=== PATIENT | male | born 1955 | race Caucasian/White ===

== ENCOUNTER 2023-03-30 12:02 | Outpatient (CLI) | payer MEDICARE, SELFPAY ==
--- NOTE | 2023-03-30 12:10 | CT_ITS ---
WS: [id number] LDCT LUNG CANCER SCREENING TECHNIQUE: Noncontrast CT of the chest with coronal and sagittal reformatted images. CLINICAL INFORMATION: TOBACCO DEPENDENCE, CIGARETTES COMPARISON: None. DLP: 82.49 mGy.cm DIvol: Mean CTDIvol: 1.60 (mGy) All CT scans at [facility] use at least one of these dose optimization techniques: automat ed exposure control; mA and/or kV adjustment per patient size (includes targeted exams where dose is matched to clinical indication); or iterative reconstruction. FINDINGS: Mild chronic emphysematous changes. Calcified granulomas. Noncalcified nodule LEFT lower lobe posteri or medially measuring 4 mm. Tiny pleural-based nodule LEFT lower lobe posterior medially. Small nonca lcified nodule LEFT upper lobe anteriorly measuring 3.5 mm. Pleural-based nodule RIGHT lower lobe pos terior medially measuring 6 mm. Partially calcified nodules LEFT upper lobe and LEFT lower lobe along the fissure. Mild aortic calcification. No mediastinal or hilar lymphadenopathy. No axillary lymphadenopathy. Adrenal glands are normal. Diffuse fatty atrophy of the pancreas. Tiny esophageal hiatal hernia. Mild thoracic curve. Mild thoracic kyphosis. CT/CT lung screening [id number] IMPRESSION: LUNG-RADS: 2-Benign Appearance or Behavior FOLLOW UP: 12 Month: Continue annual screening with LDCT
== END 2023-03-30 12:03 | disposition home or self-care (01) ==
PROVIDERS: PCP Nurse Practitioner Family; Visit Provider Nurse Practitioner Family
DX: Z12.2 Encounter for screening for malignant neoplasm of respiratory organs (principal); F17.210 Nicotine dependence, cigarettes, uncomplicated
CPT/HCPCS: 71271

== ENCOUNTER 2024-05-23 09:45 | Outpatient (CLI) | payer MEDICARE, SELFPAY ==
--- NOTE | 2024-05-23 09:50 | CT_ITS ---
WS: [id number] LDCT LUNG CANCER SCREENING HISTORY: TOBACCO DEPENDENCE, CIGARETTES TECHNIQUE: Axial imaging performed from the apices to 1 cm below the costophrenic angles. Coronal and sagittal reformats are submitted with axial MIP series. All CT scans at [facility] use at least one of these dose optimization techniques: automated exposure control; mA and/or kV adjustment per patient size (includes targeted exams where dose is matched to clinical indication); or iterativ e reconstruction. DLP: 56.70 mGy.cm DIvol: Mean CTDIvol: 1.00 (mGy) COMPARISON: 03/30/2023 Diagnostic quality: Satisfactory Lungs: Chronic emphysematous changes. Reidentified are calcified granulomatous. 4 mm nodule in the me dial LEFT lower lobe is reidentified and unchanged. Subpleural 3 mm nodule medial LEFT lower lobe. 3 mm subpleural nodule LEFT upper lobe. No endobronchial lesions. Heart: Normal size heart with no pericardial effusion.. Other findings: Mild atherosclerosis aorta. Mild coronary artery calcification. Normal size pulmonary artery. No mediastinal or hilar adenopathy. No adrenal mass. CT/CT lung screening [id number] IMPRESSION: LUNG-RADS: 2-Benign Appearance or Behavior FOLLOW UP: 12 Month: Continue annual screening with LDCT OTHER FINDINGS (S MODIFIER): None.
--- NOTE | 2024-05-23 09:50 | USCV_ITS ---
Kurt De La Cruz Age: 68 Gender: M : 1955 Exam Date: 05/23/2024 09:56 Ordering Phys: Anitha León HOTEL [employer]EL RECEPTIONIST Technologist: [place] [facility] [place] HISTORY: Diameter (cm) AP x Transverse x Length Velocity (cm/s) Waveform Prox Aorta: 2.00 x 1.90 x 51.20 Mid Aorta: 1.90 x 2.00 x 76.20 Distal Aorta: 2.00 x 1.80 x 63.30 Right Iliac Prox: 1.20 x 1.20 x 118.20 Left Iliac Prox: 1.00 x 1.00 x 136.10 Stent Prox Landing x x Aneurysmal Sac Max x x Lt Lat Sac Dim Rt Lat Sac Dim Stent Dist Landing x x Right Iliac Stent x x Left Iliac Stent x x Right Renal Art Left Renal Art FINDINGS: Comparison: none available. Technically limited exam, poor gain setting. Cannot evaluate for intraluminal plaque. Ectatic abdominal aorta with mild wall irregularity. No evidence of abdominal aortic aneurysm.No iliac artery aneurysm. CONCLUSIONS No evidence of abdominal aortic aneurysm. Irregular wall but intraluminal plaque cannot be determined due to poor technique. Dr. Brea Ash DO (Electronically Signed) Final Date: 24 May 2024 07:36 S
== END 2024-05-23 09:46 | disposition home or self-care (01) ==
LOC: RAD 09:47
PROVIDERS: PCP Nurse Practitioner Family; Visit Provider Nurse Practitioner Family
DX: F17.210 Nicotine dependence, cigarettes, uncomplicated (principal); Z13.6 Encounter for screening for cardiovascular disorders; J43.9 Emphysema, unspecified; R91.8 Other nonspecific abnormal finding of lung field; I70.0 Atherosclerosis of aorta; I25.10 Atherosclerotic heart disease of native coronary artery without angina pectoris
CPT/HCPCS: 71271; 76706